=== PATIENT | female | born 1990 | race Caucasian/White ===

== ENCOUNTER 2019-12-26 18:56 | Emergency (ER) | payer OTHER ==
[2019-12-26 19:05] VITALS: O2SAT 98
--- NOTE | 2019-12-26 19:22 | ERPHSYRPT ---
- History of Present Illness Time Seen by Provider: 12/26/19 19:10 Source: patient Exam Limitations: no limitations Physician History: Is a 29-year-old female who presents with a chief complaint of body aches, headache and subjective fever started yesterday. She has not taken anything for her symptoms to include Tylenol or ibuprofen. She states that she experienced some mild shortness of breath but otherwise has no cough, rhinorrhea, sore throat, otalgia, nausea, vomiting, diarrhea, chest pain or abdominal pain. She has no known COVID-19 exposures or any recent travel outside of the country. Severity: mild Associated Symptoms: No nausea, No vomiting, No abdominal pain Allergies/Adverse Reactions: hydralazine Allergy (Intermediate, Verified 12/26/19 19:14) Difficulty Breathing latex Allergy (Intermediate, Verified 12/26/19 19:15) Hives morphine Allergy (Intermediate, Verified 12/26/19 19:15) Itching red dye Allergy (Intermediate, Verified 12/26/19 19:14) Hives shrimp Allergy (Intermediate, Verified 12/26/19 19:14) Hives Home Medications: Labetalol HCl 200 mg PO BID 12/26/19 [History] Venlafaxine HCl [Venlafaxine HCl ER] 150 mg PO HS 12/26/19 [History] - Review of Systems Constitutional: Fever (Subjective fever), Chills Eyes: No Symptoms Ears, Nose, & Throat: No Ear Pain, No Ear Discharge, No Hearing Changes, No Mouth Pain, No Throat Swelling, No Hoarse Respiratory: Dyspnea, No Cough, No Cyanosis, No Dyspnea on Exertion (PAUL), No Stridor, No Wheezing Cardiac: No Chest Pain, No Edema, No Palpitations Abdominal/Gastrointestinal: No Abdominal Pain, No Nausea, No Vomiting, No Diarrhea Genitourinary Symptoms: No Symptoms Musculoskeletal: Myalgias Skin: No Symptoms Neurological: Headache Psychological: No Symptoms Endocrine: No Symptoms Hematologic/Lymphatic: No Symptoms Immunological/Allergic: No Symptoms All Other Systems: Reviewed and Negative - Past Medical History Pertinent Past Medical History: Yes - Nursing Vital Signs Nursing Vital Signs: Initial Vital Signs Temperature 99.7 F 12/26/19 19:02 Pulse Rate 89 12/26/19 19:02 Respiratory Rate 19 12/26/19 19:02 Blood Pressure 142/92 12/26/19 19:02 O2 Sat by Pulse Oximetry 98 12/26/19 19:02 Pain Scale Pain Intensity 2 - Physical Exam General Appearance: no apparent distress, alert Eye Exam: PERRL/EOMI, eyes nml inspection, No scleral icterus, No pale conjunctivae, No photophobia Ears, Nose, Throat Exam: normal ENT inspection, TMs normal, pharynx normal, moist mucous membranes, No TM abnormal (R), No TM abnormal (L), No pharyngeal erythema, No tonsillar exudate Neck Exam: normal inspection, non-tender, supple Respiratory Exam: normal breath sounds, lungs clear, airway intact, No chest tenderness, No respiratory distress, No diminished breath sounds, No accessory muscle use Cardiovascular Exam: regular rate/rhythm, normal heart sounds, normal peripheral pulses, capillary refill <2 sec, No murmur, No friction rub, No gallop, No tachycardia Gastrointestinal/Abdomen Exam: soft, No normal bowel sounds, No tenderness, No distention, No mass Pelvic Exam: not done Rectal Exam: deferred Back Exam: normal inspection Extremity Exam: normal inspection Neurologic Exam: alert, oriented x 3, cooperative, normal mood/affect Skin Exam: normal color, warm, dry, No rash, No petechiae, No jaundice SpO2 Interpretation: normal SpO2: 98 O2 Delivery: Room Air - Course Nursing assessment & vital signs reviewed: Yes - Radiology Exams Chest X-ray Interpretation: Interpreted by me, Reviewed by me, Negative (No acute cardiopulmonary pathology) Ordered Tests: Active Orders 24 hr Category Date Time Status CHEST 2 VIEWS (PA AND LAT) Stat Exams 12/26/19 19:24 Taken Lab/Rad Data: Laboratory Results 12/26/19 Range/Units 19:50 Influenza Type A Ag NEGATIVE (NEGATIVE) Influenza Type B Ag NEGATIVE (NEGATIVE) RSV (PCR) NEGATIVE (Negative) - Progress Progress: unchanged Progress Note: 12/26/19 23:11 Nontoxic in appearance. The patient is afebrile and well-hydrated. There is no signs of. Otherwise, her exam is completely benign. Chest x-ray is reviewed and showed no evidence of pneumonia pleural effusion or pneumothorax. Testing was negative. The patient was inquiring about Karthikeyan testing and I instructed her that we did not have the ability to test at this site and to contact the [facility] for further instructions in terms of testing and locations. Counseled pt/family regarding: lab results, diagnosis, need for follow-up, rad results - Departure Departure Disposition: Home Clinical Impression: Viral syndrome Condition: Good Critical Care Time: No Referrals: QUINCY RITCHIE [Primary Care Provider] - Instructions: Viral Syndrome (DC) Additional Instructions: Please call the [facility] at to get additional information pertaining to testing for COVID-19. In the meantime, please self-quarantine until your symptoms have resolved specifically without a recorded fever of 101 F for 72 hrs. Please return to the ED if your symptoms become worse, specifically your shortness of breath. Please take acetaminophen/Tylenol and/or ibuprofen as needed for any fever, aches, or pains. You can purchase these medications [id number]. Please take these medications as instructed on the medication bottle.
[2019-12-26 20:25] LABS: INFLUENZA A NEGATIVE (NEGATIVE); INFLUENZA B NEGATIVE (NEGATIVE); RESPIRATORY SYNCTIAL VIRUS NEGATIVE (Negative)
[2019-12-26 20:47] VITALS: BP 121/76; PULSE 71
--- NOTE | 2019-12-27 08:41 | XRAY ---
Indication: Short of breath. Comparison: None PA/lateral chest demonstrates normal heart, lungs, and bony thorax.
== END 2019-12-26 20:55 | disposition home or self-care (01) ==
LOC: ED 18:56
DX: B34.9 Viral infection, unspecified (principal)
CPT/HCPCS: 71046; 87631; 99284

== ENCOUNTER 2023-01-24 01:54 | Emergency (ER) | payer BC ==
--- NOTE | 2023-01-24 02:31 | ERPHSYRPT ---
- History of Present Illness Source: patient, police Exam Limitations: no limitations Patient Subjective Stated Complaint: I've been drinking tonight, and someone called the police tonight telling them that I was going to hurt myself. Triage Nursing Assessment: pt arrived by police, alert and oriented x3, cooperative. Pt was drinking tonight. Pt's wants to leave her. Pt made some superficial cuts to left forearm and called the police saying "She wants to hurt herself". Pt informed me that she only did it for attention because she wanted him to sit down and actually talk to her and work on changing himself. Pt denies any suicidal or homicidal ideations. Timing/Duration: today Severity of Symptoms-Max: moderate Severity of Symptoms-Current: moderate Context related to: spouse Suicidal thoughts: gesture Associated Symptoms: denies symptoms Hx Tetanus, Diphtheria Vaccination/Date Given: No Hx Influenza Vaccination/Date Given: No Hx Pneumococcal Vaccination/Date Given: No Immunizations Up to Date: No <GARETT NICHOLE - Last Filed: 01/24/23 07:03> <JENISE LÓPEZ - Last Filed: 01/24/23 07:50> - History of Present Illness Time Seen by Provider: 01/24/23 02:27 Physician History: pt states that called this in and that she has no suicidal intent. report by police is that the patients friends called that she was suicidal and that she was cutting herself. She states she passed out and may have hit her head, C cpine is nontender and has full ROM and is nontender and clears by nexus. visual jones intact full EOM. fundi benign. no pronator drift. good bilateral forest fire lookout and symmet reflexes. normal gait and coord. GS 15. Discussed labs CBC, CMP, Acet, Kosta, HCG, UA and Triage UA, EKG, and CT with pt and consents to order, reviewed and discussed with pt the results. also discussed telemental consulltation and pt agrees. (GARETT NICHOLE) Allergies/Adverse Reactions: hydralazine Allergy (Intermediate, Verified 01/24/23 02:14) Difficulty Breathing latex Allergy (Intermediate, Verified 01/24/23 02:14) Hives morphine Allergy (Intermediate, Verified 01/24/23 02:14) Itching red dye Allergy (Intermediate, Verified 01/24/23 02:14) Hives shrimp Allergy (Intermediate, Verified 01/24/23 02:14) Hives Home Medications: Labetalol HCl 300 mg PO BID 12/26/19 [History] Dapagliflozin Propanediol [Farxiga] 10 mg PO DAILY 01/24/23 [History] Phentermine HCl 1 tab PO DAILY 01/24/23 [History] Semaglutide [Ozempic] 0.25 mg SQ WEEKLY 01/24/23 [History] Travel Risk - International Travel Have you traveled outside of the country in past 3 weeks: No - Coronavirus Screening Are you exhibiting any of the following symptoms?: No Close contact with a COVID-19 positive Pt in past 14-21 Days: No - Vaccine Status Have you recieved a Covid-19 vaccination: Yes Glove Pa[employer]: [employer] - Vaccination Dates Date of 2cond Vaccination (if applicable): . <GARETT NICHOLE - Last Filed: 01/24/23 07:03> - Past Medical History Pertinent Past Medical History: Yes Neurological History: No Pertinent History ENT History: No Pertinent History Cardiac History: Hypertension Respiratory History: Bronchitis Endocrine Medical History: No Pertinent History Musculoskeletal History: No Pertinent History GI Medical History: Gallbladder Disease History: No Pertinent History Psycho-Social History: Depression Female Reproductive Disorders: Other Other Medical History: polysistic ovarian syndrome - Past Surgical History Past Surgical History: Yes Neuro Surgical History: No Pertinent History Cardiac: No Pertinent History Respiratory: No Pertinent History Gastrointestinal: Cholecystectomy Genitourinary: No Pertinent History Musculoskeletal: No Pertinent History Female Surgical History: Section - Social History Smoking Status: Never smoker Exposure to second hand smoke: No Drug Use: none Patient Lives Alone: No - Female History Hx Last Menstrual Period: 2 weeks ago Hx Now: (unknown) <GARETT NICHOLE - Last Filed: 01/24/23 07:03> - Review of Systems Constitutional: No Fever, No Chills Eyes: No Symptoms Ears, Nose, & Throat: No Symptoms, Other (right frontotemp injury) Respiratory: No Cough, No Dyspnea Cardiac: No Chest Pain, No Edema, No Syncope Abdominal/Gastrointestinal: No Abdominal Pain, No Nausea, No Vomiting, No Diarrhea Genitourinary Symptoms: No Dysuria Musculoskeletal: No Back Pain, No Neck Pain Skin: Other (scracthes arms and right frontotemp area), No Rash Neurological: No Dizziness, No Focal Weakness, No Sensory Changes Psychological: No Symptoms Endocrine: No Symptoms Hematologic/Lymphatic: No Symptoms Immunological/Allergic: No Symptoms All Other Systems: Reviewed and Negative <NICHOLEGARETT LUCA - Last Filed: 01/24/23 07:03> - Physical Exam General Appearance: no apparent distress Eyes, Ears, Nose, Throat Exam: TMs normal, pharynx normal, moist mucous membranes, other (echymosis right temporalfrontal area above and lateral to right eye) Neck Exam: normal inspection, non-tender, supple, full range of motion Respiratory Exam: normal breath sounds, lungs clear, No respiratory distress Cardiovascular Exam: regular rate/rhythm, No edema Gastrointestinal/Abdominal Exam: soft, No tenderness, No distention Extremities Exam: normal inspection, normal range of motion, No evidence of injury, No edema Current Suicidality: denies suicide plan Neurological Exam: alert, damage adjuster II-XII nml as tested, oriented x 3 Skin Exam: normal color, warm, dry, No rash SpO2: 98 <DAYANARAGARETT LUCA - Last Filed: 01/24/23 07:03> - Nursing Vital Signs Nursing Vital Signs: Initial Vital Signs Temperature 98.1 F 01/24/23 01:55 Pulse Rate 80 01/24/23 01:55 Respiratory Rate 16 01/24/23 01:55 Blood Pressure 144/91 01/24/23 01:55 O2 Sat by Pulse Oximetry 98 01/24/23 01:55 Pain Scale Pain Intensity 0 - Course Nursing assessment & vital signs reviewed: Yes - CT Exams Head CT Interpretation: Tele-radiologist Report, No Fracture, No/Intracranial Hemorrhag, Other (pre septal swelling on right mild) <DAYANARAGARETT LUCA - Last Filed: 01/24/23 07:03> Ordered Tests: Active Orders 24 hr Category Date Time Status Clean Catch Urine Specimen STAT Care 01/24/23 02:27 Active EKG-ER Only STAT Care 01/24/23 02:30 Active Psychiatric Consult STAT Cons 01/24/23 02:28 Active HEAD WITHOUT CONTRAST [CT] Stat Exams 01/24/23 02:36 Completed ACETAMINOPHEN Stat Lab 01/24/23 02:47 Completed CBC W DIFF Stat Lab 01/24/23 02:47 Completed CMP Stat Lab 01/24/23 02:47 Completed ETHYL ALCOHOL Stat Lab 01/24/23 02:47 Completed HCG QUALITATIVE, SERUM Stat Lab 01/24/23 02:47 Completed SALICYLATE Stat Lab 01/24/23 02:47 Completed UA W/RFX UR CULTURE Stat Lab 01/24/23 02:33 Completed Urine Triage Profile Stat Lab 01/24/23 02:33 Completed Medication Summary Discontinued Medications Generic Name Dose Route Start Last Admin Trade Name Ela PRN Reason Stop Dose Admin Diphtheria/Tetanus/Acell Pertussis 0.5 ml 01/24/23 03:18 01/24/23 03:49 Tdap --Diph,Pertuss(Acell),Tet Vac/Pf 0.5 Ml Vial IM 01/24/23 03:19 0.5 ml .ONCE ONE Administration Diphtheria/Tetanus/Acell Pertussis Confirm 01/24/23 03:46 Tdap --Diph,Pertuss(Acell),Tet Vac/Pf 0.5 Ml Vial Administered 01/24/23 03:47 Dose 0.5 ml IM .STK-MED ONE Lab/Rad Data: Laboratory Result Diagrams 01/24/23 02:47 01/24/23 02:47 Laboratory Results 01/24/23 01/24/23 01/24/23 Range/Units 02:47 02:47 02:47 WBC 6.5 (4.0-10.5) x10^3/uL RBC 4.16 (4.1-5.4) x10^6/uL Hgb 12.2 (12.0-16.0) g/dL Hct 36.5 (35-47) % MCV 87.7 (78-100) fL MCH 29.3 (26-32) pg MCHC 33.4 (32-36) g/dL RDW 12.3 (11.5-14.0) % Plt Count 235 (150-450) x10^3/uL MPV 10.8 (7.5-11.0) fL Gran % 77.8 H (36.0-66.0) % Immature Gran % (Auto) 0.2 (0.00-0.4) % Nucleat RBC Rel Count 0.0 (0.00-0.1) % Eos # (Auto) 0.03 (0-0.5) x10^3/uL Immature Gran # (Auto) 0.01 (0.00-0.03) x10^3u/L Absolute Lymphs (auto) 0.92 L (1.0-4.6) x10^3/uL Absolute Monos (auto) 0.44 (0.0-1.3) x10^3/uL Absolute Nucleated RBC 0.00 (0.00-0.01) x10^3u/L Lymphocytes % 14.1 L (24.0-44.0) % Monocytes % 6.8 (0.0-12.0) % Eosinophils % 0.5 (0.00-5.0) % Basophils % 0.6 (0.0-0.4) % Absolute Granulocytes 5.07 (1.4-6.9) x10^3/uL Basophils # 0.04 (0-0.4) x10^3/uL Sodium 144 (137-145) mmol/L Potassium 4.0 (3.5-5.1) mmol/L Chloride 110 H (98-107) mmol/L Carbon Dioxide 24 (22-30) mmol/L Anion Gap 14.7 (5-15) MEQ/L BUN 9 (7-17) mg/dL Creatinine 0.72 (0.52-1.04) mg/dL Estimated GFR > 60.0 ML/MIN Glucose 102 (74-106) mg/dL Calcium 8.8 (8.4-10.2) mg/dL Total Bilirubin 0.40 (0.2-1.3) mg/dL AST 26 (14-36) U/L ALT 21 (0-35) U/L Alkaline Phosphatase 59 (38-126) U/L Serum Total Protein 7.2 (6.3-8.2) g/dL Albumin 4.1 (3.5-5.0) g/dL Serum HCG, Qual NEGATIVE (NEGATIVE) Urine Color (Yellow) Urine Appearance (Clear) Urine pH (4.6-8.0) Ur Specific [place] (1.005-1.030) Urine Protein (Negative) Urine Glucose (UA) (Negative) mg/dL Urine Ketones (Negative) Urine Blood (Negative) Urine Nitrite (Negative) Urine Bilirubin (Negative) Urine Urobilinogen (0.2) mg/dL Ur Leukocyte Esterase (Negative) U Hyaline Cast (Auto) (0-2) /LPF Urine Microscopic RBC (0-5) /HPF Urine Microscopic WBC (0-5) /HPF Ur Epithelial Cells (None Seen) /HPF Urine Bacteria (None Seen) /HPF Urine Culture Reflexed (NO) Salicylates < 1.0 L (2-20) mg/dL Urine Opiates Level (NEGATIVE) Ur Methadone (NEGATIVE) Acetaminophen < 10 L (10-30) ug/ml Urine Barbiturates (NEGATIVE) Ur Phencyclidine (PCP) (NEGATIVE) Urine Amphetamine (NEGATIVE) U Benzodiazepine Level (NEGATIVE) Urine Cocaine (NEGATIVE) Urine Marijuana (THC) (NEGATIVE) Ethyl Alcohol 59 H (0-10) mg/dL 01/24/23 01/24/23 Range/Units 02:33 02:33 WBC (4.0-10.5) x10^3/uL RBC (4.1-5.4) x10^6/uL Hgb (12.0-16.0) g/dL Hct (35-47) % MCV (78-100) fL MCH (26-32) pg MCHC (32-36) g/dL RDW (11.5-14.0) % Plt Count (150-450) x10^3/uL MPV (7.5-11.0) fL Gran % (36.0-66.0) % Immature Gran % (Auto) (0.00-0.4) % Nucleat RBC Rel Count (0.00-0.1) % Eos # (Auto) (0-0.5) x10^3/uL Immature Gran # (Auto) (0.00-0.03) x10^3u/L Absolute Lymphs (auto) (1.0-4.6) x10^3/uL Absolute Monos (auto) (0.0-1.3) x10^3/uL Absolute Nucleated RBC (0.00-0.01) x10^3u/L Lymphocytes % (24.0-44.0) % Monocytes % (0.0-12.0) % Eosinophils % (0.00-5.0) % Basophils % (0.0-0.4) % Absolute Granulocytes (1.4-6.9) x10^3/uL Basophils # (0-0.4) x10^3/uL Sodium (137-145) mmol/L Potassium (3.5-5.1) mmol/L Chloride (98-107) mmol/L Carbon Dioxide (22-30) mmol/L Anion Gap (5-15) MEQ/L BUN (7-17) mg/dL Creatinine (0.52-1.04) mg/dL Estimated GFR ML/MIN Glucose (74-106) mg/dL Calcium (8.4-10.2) mg/dL Total Bilirubin (0.2-1.3) mg/dL AST (14-36) U/L ALT (0-35) U/L Alkaline Phosphatase (38-126) U/L Serum Total Protein (6.3-8.2) g/dL Albumin (3.5-5.0) g/dL Serum HCG, Qual (NEGATIVE) Urine Color Yellow (Yellow) Urine Appearance Clear (Clear) Urine pH 5.5 (4.6-8.0) Ur Specific [place] 1.020 (1.005-1.030) Urine Protein 30 (Negative) Urine Glucose (UA) Negative (Negative) mg/dL Urine Ketones Negative (Negative) Urine Blood Negative (Negative) Urine Nitrite Negative (Negative) Urine Bilirubin Negative (Negative) Urine Urobilinogen 1.0 A (0.2) mg/dL Ur Leukocyte Esterase Negative (Negative) U Hyaline Cast (Auto) 0-2 (0-2) /LPF Urine Microscopic RBC 0-2 (0-5) /HPF Urine Microscopic WBC 6-10 A (0-5) /HPF Ur Epithelial Cells Moderate A (None Seen) /HPF Urine Bacteria None Seen (None Seen) /HPF Urine Culture Reflexed NO (NO) Salicylates (2-20) mg/dL Urine Opiates Level NEGATIVE (NEGATIVE) Ur Methadone NEGATIVE (NEGATIVE) Acetaminophen (10-30) ug/ml Urine Barbiturates NEGATIVE (NEGATIVE) Ur Phencyclidine (PCP) NEGATIVE (NEGATIVE) Urine Amphetamine NEGATIVE (NEGATIVE) U Benzodiazepine Level NEGATIVE (NEGATIVE) Urine Cocaine NEGATIVE (NEGATIVE) Urine Marijuana (THC) NEGATIVE (NEGATIVE) Ethyl Alcohol (0-10) mg/dL - Progress Progress: improved, re-examined Counseled pt/family regarding: lab results, diagnosis, need for follow-up, rad results <GARETT NICHOLE - Last Filed: 01/24/23 07:03> - Progress Progress: improved <JENISE LÓPEZ - Last Filed: 01/24/23 07:50> - Progress Progress Note: 01/24/23 06:[address] López at change of shift after introduction and discussion of pending telemental for disposition pt doing well and not expressing any SIHI throughout the ER visit so far. (GARETT NICHOLE) 01/24/23 07:47 Patient evaluated by the [facility] and cleared to go home with safety plan and follow-up. (JENISE LÓPEZ) Medical Desision Making - Discussion of managment Care discussed with:: specialist Agreed on:: Treatment plan, need for follow-up Will see patient: In office <JENISE LÓPEZ - Last Filed: 01/24/23 07:50> - Departure Critical Care Time: No <GARETT NICHOLE - Last Filed: 01/24/23 07:03> - Departure Departure Disposition: Home Critical Care Time: No <JENISE LÓPEZ - Last Filed: 01/24/23 07:50> - Departure Clinical Impression: Passive suicidal ideations Condition: Good Referrals: STEPHANIE EVANS REFRIGERATION MECHANIC HELPER [Primary Care Provider] - Follow up/PCP as directed Additional Instructions: also f/u BP with your . Mental health follow-up as recommended. Return to ER if needed.
[2023-01-24 02:52] LABS: Absolute Neutrophil Ct (ANC) 5.07 x10^3/uL (1.4-6.9); BASOPHIL % 0.6 % (0.0-0.4); Basophil (Absolute #) 0.04 x10^3/uL (0-0.4); Eosinophil % 0.5 % (0.00-5.0); Eosinophil (Absolute #) 0.03 x10^3/uL (0-0.5); Hematocrit 36.5 % (35-47); Hemoglobin 12.2 g/dL (12.0-16.0); IMMATURE GRAN # 0.01 x10^3u/L (0.00-0.03); IMMATURE GRAN % 0.2 % (0.00-0.4); Lymphocyte (Absolute #) 0.92 x10^3/uL (1.0-4.6); Lymphocytes % 14.1 % (24.0-44.0); Mean Cell Volume 87.7 fL (78-100); Mean Corpuscular Hemoglobin 29.3 pg (26-32); Mean Corpuscular Hgb Concent. 33.4 g/dL (32-36); Mean Platelet Volume 10.8 fL (7.5-11.0); Monocyte (Absolute #) 0.44 x10^3/uL (0.0-1.3); Monocytes % 6.8 % (0.0-12.0); Neutrophil % 77.8 % (36.0-66.0); Platelet Count 235 x10^3/uL (150-450); Red Blood Count 4.16 x10^6/uL (4.1-5.4); Red Cell Distribution Width 12.3 % (11.5-14.0); White Blood Count 6.5 x10^3/uL (4.0-10.5)
[2023-01-24 03:02] LABS: HCG SERUM TEST NEGATIVE (NEGATIVE)
[2023-01-24 03:05] LABS: ACETAMINOPHEN < 10 ug/ml (10-30); ALBUMIN 4.1 g/dL (3.5-5.0); ALKALINE PHOSPHATASE 59 U/L (38-126); ANION GAP 14.7 MEQ/L (5-15); BLOOD UREA NITROGEN 9 mg/dL (7-17); CHLORIDE 110 mmol/L (98-107); Calcium 8.8 mg/dL (8.4-10.2); Carbon Dioxide 24 mmol/L (22-30); Creatinine 1 0.72 mg/dL (0.52-1.04); EST GLOMERULAR FILTRATION RATE > 60.0 ML/MIN; ETHYL ALCOHOL 59 mg/dL (0-10); Glucose 102 mg/dL (74-106); SALICYLATE < 1.0 mg/dL (2-20); SGOT/AST 26 U/L (14-36); SGPT/ALT 21 U/L (0-35); SODIUM 144 mmol/L (137-145); Total Protein 7.2 g/dL (6.3-8.2)
[2023-01-24 03:05] LABS: ADD URINE CULTURE? NO (NO); Appearance Clear (Clear); Bacteria None Seen /HPF (None Seen); Bilirubin Negative (Negative); Blood Negative (Negative); Epithelial Cells Moderate /HPF (None Seen); Glucose, Urine Negative (Negative); Hyaline Casts 0-2 /LPF (0-2); Ketones Negative (Negative); Leukocyte Esterase Negative (Negative); Nitrite Negative (Negative); Ph 5.5 (4.6-8.0); Protein,Urine Dip 30 (Negative); RBC 0-2 /HPF (0-5)
[2023-01-24 03:13] LABS: Amphetamine,Urine NEGATIVE (NEGATIVE); Barbiturate,Urine NEGATIVE (NEGATIVE); Benzodiazepine,Urine NEGATIVE (NEGATIVE); Cocaine,Urine NEGATIVE (NEGATIVE); Methadone,Urine NEGATIVE (NEGATIVE); Opiate,Urine NEGATIVE (NEGATIVE); PCP,Urine NEGATIVE (NEGATIVE); THC,Urine NEGATIVE (NEGATIVE)
[2023-01-24] MEDS ORDERED: Adacel Vial IM ONE ×2 (03:18→03:46)
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
[2023-01-24 07:02] VITALS: O2SAT 98
[2023-01-24 08:06] VITALS: BP 128/93; PULSE 84
== END 2023-01-24 08:23 | disposition home or self-care (01) ==
LOC: ED 01:54
DX: R45.851 Suicidal ideations (principal); F32.A Depression, unspecified; Z63.0 Problems in relationship with spouse or partner; I10 Essential (primary) hypertension; Z79.85 Long-term (current) use of injectable non-insulin antidiabetic drugs; Z79.84 Long term (current) use of oral hypoglycemic drugs; Z79.899 Other long term (current) drug therapy
CPT/HCPCS: 36415; 70450; 80053; 80143; 80179; 80307; 81001; 82077; 84703; 85025; 90471; 90791; 93005; 99284; Q3014; 90715